=== PATIENT | female | born 1950 | race Caucasian/White ===

== ENCOUNTER 2017-07-03 09:29 | Outpatient (CLI) | payer MEDICARE, OTHER ==
--- NOTE | 2017-07-04 20:08 | Mammography Report ---
DATE OF SERVICE: 07/03/2017 DIGITAL SCREENING MAMMOGRAM: 07/03/2017 CLINICAL INDICATION: A 67-year-old with history of bilateral implants, family history of breast cancer for screening. COMPARISON: Films from [place], [place] dated 05/17/2016, 03/19/2014, 09/03/2012, 07/22/2011, 07/21/2010. TECHNIQUE: Routine CC and MLO projections as well as bilateral implant displaced views were obtained of the breasts. The breasts demonstrate scattered fibroglandular densities bilaterally. Bilateral subglandular silicone implants are stable, with stable capsular calcification. No suspicious masses, clustered microcalcifications, or regions of architectural distortion are identified. IMPRESSION: Benign findings. RECOMMENDATIONS: Routine annual screening unless otherwise clinically indicated. BIRADS category 2 benign findings. STANDARD QUALIFYING STATEMENTS 1. This examination was reviewed with the aid of Computed-Aided Detection (CAD). 2. A negative or benign imaging report should not delay biopsy if clinically suspicious findings are present. Consider surgical consultation if warranted. More than 5% of cancers are not identified by imaging. 3. Dense breasts may obscure an underlying neoplasm. TD: 07/04/2017 21:07
== END 2017-07-03 09:30 | disposition home or self-care (01) ==
LOC: DI 09:29
PROVIDERS: ATTEND Family Medicine
DX: Z12.31 Encounter for screening mammogram for malignant neoplasm of breast (principal); Z80.3 Family history of malignant neoplasm of breast; Z98.82 Breast implant status
CPT/HCPCS: 77067

== ENCOUNTER 2020-02-18 20:30 | Outpatient (CLI) | payer MEDICARE, OTHER | END 2020-02-18 20:31 | disposition home or self-care (01) | LOC: SC 20:30 | PROVIDERS: ATTEND Internal Medicine Pulmonary Disease | DX: G47.33 Obstructive sleep apnea (adult) (pediatric) (principal); E66.3 Overweight; Z68.28 Body mass index [BMI] 28.0-28.9, adult | CPT/HCPCS: 95810 ==

== ENCOUNTER 2020-02-27 11:32 | Outpatient (CLI) | payer MEDICARE, OTHER ==
--- NOTE | 2020-02-27 12:04 | SLEEP CARE CONSULTATION ---
Information from patient questionnaire entered by Kiya Gonzalez. I have reviewed and concur with the information entered by Kiya Gonzalez. This document represents the service I personally performed and the decisions made by , Joyce Casper ARNP. History of Present Illness Service Date and Time: 02/27/2020 1132 Initial [place] Sleepiness Scale score: 11 (in 2020) Current [place] Sleepiness Scale score: 8 Additional HPI information: [address] returns for follow up and results of the recently performed polysomnography. Her study showed that she has severe obstructive sleep apnea with an AHI of 46.5 and a celena oxygen saturation of 65%. Her supine AHI was 70.7 and her non-supine AHI was 44.58. I explained the pathophysiology behind obstructive sleep apnea. We then spent quite a bit of time discussing different treatment options. For mild obstructive sleep apnea, surgery and oral appliance are alternatives to nasal CPAP therapy but in moderate or severe cases, nasal CPAP is the most effective and reliable treatment. I reviewed the impact of weight changes on sleep apnea and strongly recommended losing weight. After some discussion, the patient opted to go with the nasal CPAP therapy. Nasal autoCPAP set at 4-15 cmH20 will be ordered with rationale explained. A manual titration study will be ordered if unable to find optimal pressure with office adjustments. I explained how CPAP machine works with sample devices [employer] Dreamstation and [facility] [id number] and what to expect when using the machine. Using CPAP every night in order to get used to it was emphasized. Patient advised to put CPAP mask on before getting into bed so as not to fall asleep without CPAP. To assist acclimation to CPAP use, it could also be used for a short time during day while reading or watching TV. The patient was instructed to call the CPAP supplier to discuss any mechanical problem that may occur. If the mask given is uncomfortable or is difficult to keep on through the night even with adjustment, contact the CPAP supplier as many will replace with another mask style if notified before 30 days. If snoring or perceives is not getting enough air or too much air from the machine, notify this office. AASM patient education PAP tips reviewed and given to patient. Sleep Study - Results Type of Sleep Study: Polysomnography Prior sleep studies: No Polysomnography/Home Sleep Study results: IMPRESSION: The quality of the study is good. The patient had normal sleep efficiency. Despite moderate sleep fragmentation, the sleep architecture was normal as well. Respiratory monitoring showed severe obstructive sleep apnea-hypopnea (AHI = 46.5) associated with frequent arousals, oxyhemoglobin desaturation and moderate hypoxia (celena oxygen saturation of 65%). Baseline oxygen saturation was normal. The respiratory events occurred independently of sleep stage and body position (supine AHI = 70.7; non-supine = 44.58). Snore was loud in intensity. There was no significant periodic leg movement of sleep. Cardiac rhythm was normal sinus rhythm without significant arrhythmia. No abnormal behavior (parasomnia) observed during the night. Allergies and Home Medications Drug allergies reviewed: Yes (penicillin) Home medication list reviewed: Yes (amytriptaline for sleep) Review of Systems Review of systems same as previous: Yes (no changes) Physical Exam Heart Rate: 80 O2 Saturation: 97 Height: 5 ft 6.5 in Weight: 183 lb Body Mass Index: 29.0 BMI Classification: Overweight Impression and Plan 1. Obstructive Sleep Apnea-Hypopnea Syndrome, severe, with lowest oxygen saturation of 65%. Obviously this is the cause of the patients symptoms of unrefreshed sleep, and excessive daytime sleepiness. Positive pressure therapy could benefit her anxiety and her overall health. As mentioned above, the patient will be started on nasal autoCPAP therapy with pressure set at 4-15 cmH2O. A manual titration study will be completed if unable to find optimal treatment pressure with office adjustments. Compliance guidelines also reviewed. A copy of compliance guidelines will be given for reference at check out. Because the apnea is more severe supine, I instructed to avoid sleeping supine using pillow positioning until able to start CPAP use. * Nasal auto CPAP therapy, pressure at 4-15 cm H2O. * Attempt to lose weight. * Avoid alcohol consumption near bedtime. * Avoid supine sleep until using CPAP. * The patient is again cautioned about driving until sleepiness completely resolves. * Return one month after CPAP obtained. I will assess response to therapy and compliance at that time. Visit Type: In Office Time Spent with Patient (minutes): 25 Provider Statement: I spent 100% of the Face to Face Visit with the patient with greater than 50% spent counseling the patient and coordination of care.
== END 2020-02-27 11:33 | disposition home or self-care (01) ==
LOC: SC 11:32
PROVIDERS: ATTEND Nurse Practitioner Family
DX: G47.33 Obstructive sleep apnea (adult) (pediatric) (principal); E66.3 Overweight; Z68.29 Body mass index [BMI] 29.0-29.9, adult
CPT/HCPCS: 99213; G0463; 99212

== ENCOUNTER 2020-03-17 08:49 | Outpatient (CLI) | payer MEDICARE, OTHER ==
--- NOTE | 2020-03-17 13:26 | Mammography Report ---
BILATERAL DIGITAL SCREENING MAMMOGRAM 3D/2D WITH AUGMENTATION: 03/17/2020 CLINICAL: Family history of breast cancer. Routine screening. Comparison is made to exams dated: 07/03/2017 mammogram - [facility], 05/17/2016 ma mmogram, 03/19/2014 mammogram, 09/03/2012 mammogram, 07/22/2011 mammogram, and [facility] There are scattered fibroglandular elements in both breasts. Bilateral breast implants are stable. No significant masses, calcifications, or other findings are seen in either breast. There has been no significant interval change. IMPRESSION: NEGATIVE There is no mammographic evidence of malignancy. A 1 year screening mammogram is recommended. This exam was interpreted at Station ID: [id number]. NOTE: For mammograms, a report in lay terms will be sent to the patient. Approximately 15% of breast malignancies will not be visualized mammographically. In the management of a palpable breast mass, a negative mammogram must not discourage biopsy of a clinically suspicious lesion. Electronically Signed By: Minesh Lacy M.D. [facility] [place]:03/17/2020 10:12:17 ACR BI-RADS Category 1: Negative 3341F PARENCHYMAL PATTERN: (A) - The breast(s) demonstrate(s) scattered fibroglandular densities. BI-RADS CATEGORY: (1) - 1 RECOMMENDATION: (ANNUAL) - Recommend routine annual screening mammography. [id number] 1 year screening LATERALITY: (B)
== END 2020-03-17 08:50 | disposition home or self-care (01) ==
LOC: DI.N 08:49
DX: Z12.31 Encounter for screening mammogram for malignant neoplasm of breast (principal); Z80.3 Family history of malignant neoplasm of breast; Z98.82 Breast implant status
CPT/HCPCS: 77063; 77067

== ENCOUNTER 2020-04-21 13:03 | Outpatient (CLI) | payer MEDICARE, OTHER ==
--- NOTE | 2020-04-21 13:56 | SLEEP CARE CONSULTATION ---
Information from patient questionnaire entered by Kiya Gonzalez. I have reviewed and concur with the information entered by Kiya Gonzalez. This document represents the service I personally performed and the decisions made by , Joyce Casper ARNP. History of Present Illness Service Date and Time: 04/21/2020 1303 Previous diagnosis: Severe, Obstructive Sleep Apnea-Hypopnea Syndrome AHI: 46.5 (in 2019) Reason for follow up: first compliance Equipment type: CPAP Equipment obtained from: [facility] (supplies ordered, none received yet) Mask style: Full face Backup mask available: Yes (other mask, medium) Last cushion change: 1 month Prior sleep studies: Yes Year and Where: 2019 - [facility] Type of Sleep Study: Polysomnography HPI additional information: [address] was diagnosed to have severe, AHI 46.5, obstructive sleep apnea- hypopnea syndrome and returned today for CPAP therapy first compliance follow- up. CPAP Compliance Data - Data Reviewed with Patient Average duration of nightly device use: 8 Compliance rate %: 100 Current pressure setting (cmH2O): 4-15 Humidity settin Heated hose settin Average residual AHI: 7.0 Central apnea: 0.5 Obstructive apnea: 2.8 Average large leak: 20 sec Subjective Patient concerns: reports: mask leak noise (when she lays on her back, leaks around chin), dry mouth, nose, throat (50% of time), other (seems to leak if I switch to lying on my back.). denies: aerophagia, mask discomfort, air blowing in eyes, condensation in mask/hose, nasal congestion, epistaxis Observed to snore while using device: No Current pressure setting perceived as: too high (sometimes, during the night atou 3-4 AM, about twice a night; ramps and adjust with good results) On therapy, patient: reports: sleeping better, awakening more refreshed, being more awake and alert during the day, more rested overall. denies: drowsiness while driving Initial [place] Sleepiness Scale score: 11 (in 2019) Current [place] Sleepiness Scale score: 5 Allergies and Home Medications Drug allergies reviewed: Yes (penicillin) Home medication list reviewed: Yes (no changes) Review of Systems Review of systems same as previous: Yes (no changes) Physical Exam Heart Rate: 70 O2 Saturation: 97 Height: 5 ft 6.5 in Weight: 191 lb Body Mass Index: 30.3 BMI Classification: Obese Impression and Plan 1. Obstructive Sleep Apnea-Hypopnea Syndrome, severe, with excellent treatment compliance and fair apnea control with elevated AHI at 7.0. On CPAP therapy, the patient has better sleep quality and is more rested overall. She has had some mask leak noises when she turns onto her back. I encouraged her to put the mask on when she is laying on her back as this may help to reduce leak noises when turning to sleep on back. She has also had some oral dryness. She thinks some of it could be caused by the amitriptyline that she takes daily. Oral dryness can be reduced by adjusting humidity setting higher or heated hose lower or by adjusting both settings. Printed instructions given on how to change humidity and heated hose settings with rationale explaining why to change. Oral dryness can also be reduced by reducing mask leaks. Patient advised that chronic oral dryness can affect dental health and advised to follow up with dentist. In addition, there are oral dryness products that can be used to reduce dryness such as Biotene products, Dry mouth rinse and Xylomelts. Patient to discuss best option with dentist. Patient's apnea severity and rationale for treatment to reduce apnea, improve sleep quality and reduce cardiovascular and cerebrovascular events was reviewed. I also reviewed the benefit of consistent device use of CPAP for anxiety. * Change autoCPAP pressure to 9-10 cmH2O * Notify me if snoring with mask or feeling that the pressure is too much or too little * Attempt to lose weight * Call this office if any problems using CPAP * Return for follow up in 1-2 months, or sooner if concerns arise Counseling Topics: Spare mask, Weight loss health impact Visit Type: In Office Time Spent with Patient (minutes): 19 Provider Statement: I spent 100% of the Face to Face Visit with the patient with greater than 50% spent counseling the patient and coordination of care.
== END 2020-04-21 13:04 | disposition home or self-care (01) ==
LOC: SC 13:03
PROVIDERS: ATTEND Nurse Practitioner Family
DX: G47.33 Obstructive sleep apnea (adult) (pediatric) (principal); E66.9 Obesity, unspecified; Z68.30 Body mass index [BMI] 30.0-30.9, adult
CPT/HCPCS: 99212; G0463

== ENCOUNTER 2020-06-02 13:02 | Outpatient (CLI) | payer MEDICARE, OTHER ==
--- NOTE | 2020-06-02 13:49 | SLEEP CARE CONSULTATION ---
Information from patient questionnaire entered by Kiya Gonzalez. I have reviewed and concur with the information entered by Kiya Gonzalez. This document represents the service I personally performed and the decisions made by , Joyce Casper ARNP. History of Present Illness Service Date and Time: 06/02/2020 1302 Previous diagnosis: Severe, Obstructive Sleep Apnea-Hypopnea Syndrome AHI: 46.5 (in 2019) Reason for follow up: other (6 week with pressure change) Equipment type: CPAP Equipment obtained from: [facility] (getting supplies as needed) Mask style: Full face Backup mask available: Yes (other mask) Last cushion change: 2 weeks Prior sleep studies: Yes Year and Where: 2019 - [facility] Type of Sleep Study: Polysomnography HPI additional information: [address] was diagnosed to have severe, AHI 46.5, obstructive sleep apnea- hypopnea syndrome and returned today for CPAP therapy 6 week pressure change follow-up. CPAP Compliance Data - Data Reviewed with Patient Average duration of nightly device use: 7 hr 21 min Compliance rate %: 100 Current pressure setting (cmH2O): 9-10 Humidity settin Heated hose settin Average residual AHI: 2.1 Average large leak: 0 Subjective Patient concerns: reports: air blowing in eyes (using gel moisturizer with good results), dry mouth, nose, throat (sometimes, sometimes has mouth open). denies: aerophagia, mask discomfort, mask leak noise, condensation in mask/hose, nasal congestion, epistaxis, other Observed to snore while using device: No Current pressure setting perceived as: comfortable On therapy, patient: reports: sleeping better, awakening more refreshed, being more awake and alert during the day, more rested overall. denies: drowsiness while driving Initial [place] Sleepiness Scale score: 11 (in 2020) Current [place] Sleepiness Scale score: 3 Allergies and Home Medications Drug allergies reviewed: Yes (penicillins) Home medication list reviewed: Yes (no changes) Review of Systems Review of systems same as previous: Yes (no changes) Physical Exam Heart Rate: 80 O2 Saturation: 96 Height: 5 ft 6.5 in Weight: 194 lb Body Mass Index: 30.8 BMI Classification: Obese Impression and Plan 1. Obstructive Sleep Apnea-Hypopnea Syndrome, severe, with excellent treatment compliance and good apnea control. On CPAP therapy, the patient has better sleep quality and is more rested overall. Patient plans on trying to lose weight. She would also like to have a little more range of lower pressures because sometimes the pressure feels too much when putting back on. Currently patients BMI is 30.8. Obesity increases the risk of apnea, CPAP pressure requirements and overall health risks especially cardiovascular and diabetes. The patient's CPAP pressure range should accommodate some weight loss. Symptoms to report for additional pressure adjustment discussed. Patient's apnea severity and rationale for treatment to reduce apnea, improve sleep quality and reduce cardiovascular and cerebrovascular events was reviewed. I also reviewed the benefit of consistent device use of CPAP for anxiety. * Change autoCPAP pressure to 8-10 cmH2O * Notify me if snoring with mask or feeling that the pressure is too much or too little * Attempt to lose weight * Call this office if any problems using CPAP * Return for follow up in 3 months, or sooner if concerns arise Counseling Topics: Spare mask, Weight loss health impact Visit Type: In Office Time Spent with Patient (minutes): 22 Provider Statement: I spent 100% of the Face to Face Visit with the patient with greater than 50% spent counseling the patient and coordination of care.
== END 2020-06-02 13:03 | disposition home or self-care (01) ==
LOC: SC 13:02
PROVIDERS: ATTEND Nurse Practitioner Family
DX: G47.33 Obstructive sleep apnea (adult) (pediatric) (principal); E66.9 Obesity, unspecified; Z68.30 Body mass index [BMI] 30.0-30.9, adult
CPT/HCPCS: 99213; G0463; 99212

== ENCOUNTER 2020-09-01 13:00 | Outpatient (CLI) | payer MEDICARE, OTHER ==
--- NOTE | 2020-09-01 13:33 | SLEEP CARE CONSULTATION ---
Information from patient questionnaire entered by Darion Greco. I have reviewed and concur with the information entered by Darion Greco. This document represents the service I personally performed and the decisions made by me, Joyce Casper ARNP. History of Present Illness Service Date and Time: 09/01/2020 1300 Previous diagnosis: Severe, Obstructive Sleep Apnea-Hypopnea Syndrome AHI: 46.5 Reason for follow up: three month (followup - pressure change) Equipment type: CPAP Equipment obtained from: [facility] (getting supplies as needed) Mask style: Full face Backup mask available: Yes (other mask) Prior sleep studies: Yes Year and Where: 2019 - [facility] Type of Sleep Study: Polysomnography HPI additional information: [address] was diagnosed to have severe, AHI 46.5, obstructive sleep apnea- hypopnea syndrome and returned today for CPAP therapy three month pressure change follow-up. CPAP Compliance Data - Data Reviewed with Patient Average duration of nightly device use: 7 h 20 min Compliance rate %: 97.8 Current pressure setting (cmH2O): 8-10 Humidity settin Heated hose settin Average residual AHI: 3.2 Average large leak: 0 sec Subjective Patient concerns: reports: mask discomfort, mask leak noise. denies: aerophagia, air blowing in eyes, condensation in mask/hose, nasal congestion, dry mouth, nose, throat, epistaxis, other Observed to snore while using device: No (not that she knows of) Current pressure setting perceived as: too high (unsure, changing the mask helps it to feel better) On therapy, patient: reports: sleeping better, awakening more refreshed, being more awake and alert during the day, more rested overall. denies: drowsiness while driving Initial [place] Sleepiness Scale score: 11 (in 2020) Current [place] Sleepiness Scale score: 2 Allergies and Home Medications Drug allergies reviewed: Yes (penicillin) Home medication list reviewed: Yes (no changes) Review of Systems Review of systems same as previous: Yes (no changes) Physical Exam Heart Rate: 72 O2 Saturation: 97 Height: 5 ft 6.5 in Weight: 190 lb Body Mass Index: 30.2 BMI Classification: Obese Impression and Plan 1. Obstructive Sleep Apnea-Hypopnea Syndrome, severe, with good treatment compliance and good apnea control. On CPAP therapy, the patient has better sleep quality and is more rested overall. She is having a lot more energy during the day. She is still having issues with mask leak noises and mask discomfort with using the full face mask. She has made an appointment with the DME to get fitted with a nasal mask to see if this would seal better and work better for her. She is very happy with CPAP therapy and response to therapy. She does not feel the pressure is too much and is working well at the current settings. I will leave at current setting for good apnea control. She is to follow up in 3 months to check on her progress and how the new mask is working. Patient's apnea severity and rationale for treatment to reduce apnea, improve sleep quality and reduce cardiovascular and cerebrovascular events was reviewed. I also reviewed the benefit of consistent device use of CPAP for anxiety. * Continue auto CPAP pressure at 8-10 cmH2O * Patient to follow up with DME for new mask fitting * Notify me if snoring with mask or feeling that the pressure is too much or too little * Attempt to lose weight * Call this office if any problems using CPAP * Return for follow up in 3 months, or sooner if concerns arise Counseling Topics: Spare mask, Weight loss health impact Visit Type: In Office Time Spent with Patient (minutes): 21 Provider Statement: I spent 100% of the Face to Face Visit with the patient with greater than 50% spent counseling the patient and coordination of care.
== END 2020-09-01 13:01 | disposition home or self-care (01) ==
LOC: SC 13:00
PROVIDERS: ATTEND Nurse Practitioner Family
DX: G47.33 Obstructive sleep apnea (adult) (pediatric) (principal); E66.9 Obesity, unspecified; Z68.30 Body mass index [BMI] 30.0-30.9, adult
CPT/HCPCS: 99213; G0463; 99212

== ENCOUNTER 2020-12-01 12:42 | Outpatient (CLI) | payer MEDICARE, OTHER ==
--- NOTE | 2020-12-01 13:14 | SLEEP CARE CONSULTATION ---
Information from patient questionnaire entered by Kiya Gonzalez. I have reviewed and concur with the information entered by Kiya Gonzalez. This document represents the service I personally performed and the decisions made by , Joyce Casper ARNP. History of Present Illness Service Date and Time: 12/01/2020 1242 Previous diagnosis: Severe, Obstructive Sleep Apnea-Hypopnea Syndrome AHI: 46.5 (in 2019) Reason for follow up: three month Equipment type: CPAP Equipment obtained from: [facility] (getting supplies as needed) Mask style: Nasal Backup mask available: Yes (old mask) Last cushion change: today Prior sleep studies: Yes Year and Where: 2019 - [facility] Type of Sleep Study: Polysomnography HPI additional information: [address] was diagnosed to have severe, AHI 46.5, obstructive sleep apnea- hypopnea syndrome and returned today for CPAP therapy three month follow-up. CPAP Compliance Data - Data Reviewed with Patient Average duration of nightly device use: 7 hr 28 min Compliance rate %: 100 (90 days) Current pressure setting (cmH2O): 8-10 Humidity settin Heated hose settin Average residual AHI: 2.8 Average large leak: 4 sec Subjective Patient concerns: denies: aerophagia, mask discomfort, air blowing in eyes, mask leak noise, condensation in mask/hose, nasal congestion, dry mouth, nose, throat, epistaxis, other Observed to snore while using device: No Current pressure setting perceived as: comfortable On therapy, patient: reports: sleeping better, awakening more refreshed, being more awake and alert during the day, more rested overall. denies: drowsiness while driving Initial [place] Sleepiness Scale score: 11 (in 2019) Current [place] Sleepiness Scale score: 4 Allergies and Home Medications Home medication list reviewed: Yes (no changes) Review of Systems Review of systems same as previous: Yes (no changes) Physical Exam Heart Rate: 74 O2 Saturation: 97 Height: 5 ft 6.5 in Weight: 187 lb Body Mass Index: 29.7 BMI Classification: Overweight Impression and Plan 1. Obstructive Sleep Apnea-Hypopnea Syndrome, severe, with excellent treatment compliance and good apnea control. On CPAP therapy, the patient has better sleep quality and is more rested overall. Patient is very satisfied with her CPAP therapy. She changed to a nasal cushion mask and states it fits better and is more comfortable than the full face mask she was using at first. She is going to continue using the nasal cushion mask. I asked her about weight loss and she states she does have an appointment with a new occupational health coordinator that she will be working with to reduce her weight. She was advised to concentrate on getting better nutrition and less on calorie intake. She voiced understanding and agreement with this plan of care. Patient's apnea severity and rationale for treatment to reduce apnea, improve sleep quality and reduce cardiovascular and cerebrovascular events was reviewed. I also reviewed the benefit of consistent device use of CPAP for anxiety. * Continue auto CPAP pressure at 8-10 cmH2O * Notify me if snoring with mask or feeling that the pressure is too much or too little * Attempt to lose weight * Call this office if any problems using CPAP * Return for follow up in 6 months, or sooner if concerns arise Counseling Topics: Spare mask, Weight loss health impact Visit Type: In Office Time Spent with Patient (minutes): 14 Provider Statement: I spent 100% of the Face to Face Visit with the patient with greater than 50% spent counseling the patient and coordination of care.
== END 2020-12-01 12:43 | disposition home or self-care (01) ==
LOC: SC 12:42
PROVIDERS: ATTEND Nurse Practitioner Family
DX: G47.33 Obstructive sleep apnea (adult) (pediatric) (principal); E66.3 Overweight; Z68.29 Body mass index [BMI] 29.0-29.9, adult
CPT/HCPCS: 99212; G0463

== ENCOUNTER 2021-06-09 09:56 | Outpatient (CLI) | payer MEDICARE, OTHER ==
[2021-06-09 11:01] VITALS: BP 134/87
--- NOTE | 2021-06-09 11:01 | SLEEP CARE CONSULTATION ---
Information from patient questionnaire entered by Pamela Mota MA. I have reviewed and concur with the information entered by Pamela Mota MA. This document represents the service I personally performed and the decisions made by , Joyce Casper ARNP. History of Present Illness Service Date and Time: 06/09/2021 0956 Previous diagnosis: Severe, Obstructive Sleep Apnea-Hypopnea Syndrome AHI: 46.5 (in 2019) Reason for follow up: six month (6 MONTH F/U) Equipment type: CPAP Equipment obtained from: Other ([facility]; getting) Mask style: Nasal Backup mask available: Yes (old mask) Prior sleep studies: Yes Year and Where: 2019 - [facility] Type of Sleep Study: Polysomnography HPI additional information: [address] was diagnosed to have severe, AHI 46.5, obstructive sleep apnea- hypopnea syndrome and returned today for CPAP therapy six month follow-up. Sleep Study - Results Type of Sleep Study: Polysomnography Prior sleep studies: Yes Year and Where: 2019 - [facility] CPAP Compliance Data - Data Reviewed with Patient Average duration of nightly device use: Compliance rate %: 95 Current pressure setting (cmH2O): 8-10 Humidity settin Heated hose setting: disabled Average residual AHI: 2.5 Average large leak: 12 seconds Subjective Missed days of use due to: reports: other (recall) Patient concerns: denies: aerophagia, mask discomfort, air blowing in eyes, mask leak noise, condensation in mask/hose, nasal congestion, dry mouth, nose, throat, epistaxis, other Observed to snore while using device: No Current pressure setting perceived as: comfortable On therapy, patient: reports: sleeping better, awakening more refreshed, being more awake and alert during the day, more rested overall. denies: drowsiness while driving Initial [place] Sleepiness Scale score: 11 (in 2019) Current [place] Sleepiness Scale score: 4 (2020) Allergies and Home Medications Known drug allergies: Yes (PN) Drug allergies reviewed: Yes Home medication list reviewed: Yes (no changes) Review of Systems Review of systems same as previous: Yes (no changes) Physical Exam Vital signs obtained and entered by: MARVIN IVEY Blood Pressure: 134/87 (left) Cuff size: wrist Heart Rate: 87 O2 Saturation: 98 (cloth mask) Height: 5 ft 6.5 in Weight: 186 lb (with clothes) Body Mass Index: 29.5 BMI Classification: Overweight Impression and Plan 1. Obstructive Sleep Apnea-Hypopnea Syndrome, severe, with good treatment compliance and good apnea control. On CPAP therapy, the patient has better sleep quality and is more rested overall. Patient has a Dreamstation. Patient has already registered their device for the recall. Patient denies any black particles seen in machine or hoses, any unusual odors coming from device. Patient has not experienced any physical symptoms such as upper airway irritation, headache, skin or eye irritation, asthma, nausea/vomiting, difficult y breathing or chest pain. If patient is not able to sleep due to waking up choking, gasping for air or other respiratory distress that they may decide to continue using it until it is either replaced or repaired. Patient is nervous about using the recalled device. She was instructed to elevate her head to help reduce apneas. She was advised that she may try to obtain a portable CPAP but that insurance does not usually pay for them. Patient decided to look into obtaining a portable CPAP device that she could use until her recalled device is replaced or fixed. I will make a prescription for her. Patient voiced understanding and agreement with plan. Patient's apnea severity and rationale for treatment to reduce apnea, improve sleep quality and reduce cardiovascular and cerebrovascular events was reviewed. I also reviewed the benefit of consistent device use of CPAP for anxiety. * Continue auto CPAP pressure at 8-10 cmH2O * Prescription for portable APAP * Notify me if snoring with mask or feeling that the pressure is too much or too little * Attempt to lose weight * Call this office if any problems using CPAP * Return for follow up in 1 year, or sooner if concerns arise Counseling Topics: Spare mask, Weight loss health impact Visit Type: In Office Time Spent with Patient (minutes): 20 Provider Statement: I spent 100% of the Face to Face Visit with the patient with greater than 50% spent counseling the patient and coordination of care.
== END 2021-06-09 09:57 | disposition home or self-care (01) ==
LOC: SC 09:56
PROVIDERS: ATTEND Nurse Practitioner Family
DX: G47.33 Obstructive sleep apnea (adult) (pediatric) (principal)
CPT/HCPCS: 99213; G0463; 99212

== ENCOUNTER 2022-03-01 13:05 | Outpatient (CLI) | payer MEDICARE, OTHER ==
[2022-03-01 13:45] VITALS: BP 133/75
--- NOTE | 2022-03-01 13:45 | SLEEP CARE CONSULTATION ---
Information from patient questionnaire entered by Ana Greco MA. I have reviewed and concur with the information entered by Ana Greco MA. This document represents the service I personally performed and the decisions made by , Joyce Casper ARNP. History of Present Illness Service Date and Time: 03/01/2022 1305 Previous diagnosis: Severe, Obstructive Sleep Apnea-Hypopnea Syndrome AHI: 46.5 (in 2019) Reason for follow up: other (9 MO FOLLOW UP LAST SEEN 06/08) Equipment type: CPAP Equipment obtained from: Other ([facility]; getting supplies as needed) Mask style: Nasal Backup mask available: Yes (old mask) Last cushion change: 2 weeks Prior sleep studies: Yes Year and Where: 2019 - [facility] Type of Sleep Study: Polysomnography HPI additional information: [address] was diagnosed to have severe, AHI 46.5, obstructive sleep apnea- hypopnea syndrome and returned today for CPAP therapy nine months follow-up. Sleep Study - Results Type of Sleep Study: Polysomnography Prior sleep studies: Yes Year and Where: 2019 - [facility] CPAP Compliance Data - Data Reviewed with Patient Average duration of nightly device use: 7 hrs 8 mins Compliance rate %: 92.8 (12/09/2020-06/06/2021) Current pressure setting (cmH2O): 8-10 Average residual AHI: 2.5 Compliance data discussion: Patient has a Dreamstation that is on the recall. She bought an Flyzik machine. She has been using this every night with a score of 85-100% per patient report. She states her AHI average is about 1.8-2.0. Subjective Missed days of use due to: reports: other (Using Air Mini due to recall on her Jose Welzoo) Patient concerns: denies: aerophagia, mask discomfort, air blowing in eyes, mask leak noise, condensation in mask/hose, nasal congestion, dry mouth, nose, throat, epistaxis, other Observed to snore while using device: No Current pressure setting perceived as: comfortable On therapy, patient: reports: sleeping better, awakening more refreshed, being more awake and alert during the day, more rested overall. denies: drowsiness while driving Initial [place] Sleepiness Scale score: 11 (in 2019) Current [place] Sleepiness Scale score: 1 (03/01/22) Allergies and Home Medications Drug allergies reviewed: Yes (PCN G) Home medication list reviewed: Yes (no changes) Review of Systems Review of systems same as previous: Yes (no changes) Physical Exam Vital signs obtained and entered by: ADORE Blood Pressure: 133/75 (LEFT) Cuff size: wrist Heart Rate: 78 O2 Saturation: 98 Height: 5 ft 6.5 in Weight: 185 lb Weight change since last visit: 1 lb loss Body Mass Index: 29.4 BMI Classification: Overweight Impression and Plan 1. Obstructive Sleep Apnea-Hypopnea Syndrome, severe, with unknown treatment compliance and unknown apnea control. On CPAP therapy, the patient has better sleep quality and is more rested overall. Patient has a Jose DreamStation that is on the recall. She got a ResMed Airmini portable machine that she has been using since May of 2021. She did not bring it in with her today and did not download information to her phone saturnino for us to see this information. I requested that she bring it in so that we can get compliance information and she agreed. I entered information from her DreamStation CPAP which reflects the use she still does with her ResMed Airmini. Patient denies problems with oral dryness, nasal congestion, epistaxis, skin irritation or aerophagia. I will write a prescription to update her supplies. Patient's apnea severity and rationale for treatment to reduce apnea, improve sleep quality and reduce cardiovascular and cerebrovascular events was reviewed. I also reviewed the benefit of consistent device use of CPAP for anxiety. * Continue auto CPAP pressure at 8-10 cmH2O * Patient to bring in her Resmed Airmini to get download information * Update supplies * Notify me if snoring with mask or feeling that the pressure is too much or too little * Attempt to lose weight * Call this office if any problems using CPAP * Return for follow up in 1 year, or sooner if concerns arise Counseling Topics: Spare mask, Weight loss health impact Visit Type: In Office Time Spent with Patient (minutes): 21 Provider Statement: I spent 100% of the Face to Face Visit with the patient with greater than 50% spent counseling the patient and coordination of care.
== END 2022-03-01 13:06 | disposition home or self-care (01) ==
LOC: SC 13:05
PROVIDERS: ATTEND Nurse Practitioner Family
DX: G47.33 Obstructive sleep apnea (adult) (pediatric) (principal); E66.3 Overweight; Z68.29 Body mass index [BMI] 29.0-29.9, adult
CPT/HCPCS: 99213; G0463; 99212

== ENCOUNTER 2023-02-28 12:54 | Outpatient (CLI) | payer MEDICARE, OTHER ==
--- NOTE | 2023-02-28 13:35 | Sleep Patient Instructions ---
Sleep Center Visit Summary - Patient Visit Information Reason for Visit: Annual visit for PAP therapy - Patient Instructions Additional Instructions: You will continue with CPAP therapy with pressure set at 8-10 cmH2O. A supply prescription will be updated with your DME. We encourage you to continue to try to lose weight. Please follow up with the sleep care office in 1 year. - Clinic Information Contact: [facility] [address] [place] [address] [email or web address] T: [phone]
--- NOTE | 2023-02-28 13:40 | SLEEP CARE CONSULTATION ---
Information from patient questionnaire entered by Eliza Salmon. I have reviewed and concur with the information entered by Eliza Salmon. This document represents the service I personally performed and the decisions made by me, Joyce Casper ARNP. History of Present Illness Service Date and Time: 02/28/2023 1254 Previous diagnosis: Severe, Obstructive Sleep Apnea-Hypopnea Syndrome AHI: 46.5 (in 2019) Reason for follow up: annual (LAST SEEN 02/2022) Equipment type: CPAP (Jose Dreamstation, recertified; s/u ) Equipment obtained from: Other ([facility]; getting supplies as needed) Mask style: Nasal Backup mask available: Yes (old mask) Last cushion change: 1 week Prior sleep studies: Yes Year and Where: 2019 - [facility] Type of Sleep Study: Polysomnography HPI additional information: [address] was diagnosed to have severe, AHI 46.5, obstructive sleep apnea- hypopnea syndrome and returned today for CPAP therapy annual follow-up. Sleep Study - Results Type of Sleep Study: Polysomnography Prior sleep studies: Yes Year and Where: 2019 - [facility] CPAP Compliance Data - Data Reviewed with Patient Average duration of nightly device use: 8 HRS 15 MINS 34 SECS Compliance rate %: 100 (12/24/22-02/21/23; 60/60 days used) Current pressure setting (cmH2O): 8-10 Average residual AHI: 3.8 Central apnea: 0.3 Obstructive apnea: 1.3 Hypopnea: 2.2 Average large leak: 13 mins 5 secs Subjective Patient concerns: denies: aerophagia, mask discomfort, air blowing in eyes, mask leak noise, condensation in mask/hose, nasal congestion, dry mouth, nose, throat, epistaxis Observed to snore while using device: No Current pressure setting perceived as: comfortable On therapy, patient: reports: sleeping better, awakening more refreshed, being more awake and alert during the day, more rested overall. denies: drowsiness while driving Initial [place] Sleepiness Scale score: 11 (in 2019) Current [place] Sleepiness Scale score: 4 (02/28/23) Allergies and Home Medications Known drug allergies: Yes (as listed) Drug allergies reviewed: Yes Home medication list reviewed: Yes (no changes) Allergy and home medication list: Allergies penicillin G Allergy (Verified 02/27/23 09:39) Review of Systems Review of systems same as previous: No (UPCOMING R KNEE REPLACEMENT MAR 09 2023) Physical Exam Vital signs obtained and entered by: ELIZA Naqvi MA Blood Pressure: 160/94 (02/28/23) Cuff size: regular Heart Rate: 83 O2 Saturation: 96 Height: 5 ft 6.5 in Weight: 196 lb 3.2 oz Weight change since last visit: 11 lb gain Body Mass Index: 31.1 BMI Classification: Obese Impression and Plan 1. Obstructive Sleep Apnea-Hypopnea Syndrome, severe, with good treatment compliance and good apnea control. On CPAP therapy, the patient has better sleep quality and is more rested overall. Patient has significant improvement of their sleep apnea and is satisfied with current CPAP therapy. Patient denies problems with oral dryness, nasal congestion, epistaxis, skin irritation or aerophagia. She is going to have a knee replacement on her right knee in a couple weeks. She is looking forward to less pain in her knee. Patient's apnea severity and rationale for treatment to reduce apnea, improve sleep quality and reduce cardiovascular and cerebrovascular events was reviewed. I also reviewed the benefit of consistent device use of CPAP for anxiety. 2. Obesity, unspecified. Currently patients BMI is 31.1. Obesity increases the risk of apnea, CPAP pressure requirements and overall health risks especially cardiovascular and diabetes. Thus patient is advised to lose weight. * Continue auto CPAP pressure at 8-10 cmH2O * Update supplies * Notify me if snoring with mask or feeling that the pressure is too much or too little * Attempt to lose weight * Call this office if any problems using CPAP * Return for follow up in 1 year, or sooner if concerns arise Counseling Topics: Spare mask, Weight loss health impact Visit Type: In Office Time Spent with Patient (minutes): 20 Provider Statement: I spent 100% of the Face to Face Visit with the patient with greater than 50% spent counseling the patient and coordination of care.
[2023-02-28 13:42] VITALS: BP 160/94; O2SAT 96
== END 2023-02-28 12:55 | disposition home or self-care (01) ==
LOC: SC 12:54
PROVIDERS: ATTEND Nurse Practitioner Family
DX: G47.33 Obstructive sleep apnea (adult) (pediatric) (principal); E66.9 Obesity, unspecified; Z68.31 Body mass index [BMI] 31.0-31.9, adult
CPT/HCPCS: 99213; G0463; 99212

== ENCOUNTER 2024-03-05 10:44 | Outpatient (CLI) | payer MEDICARE, OTHER ==
--- NOTE | 2024-03-05 11:20 | Sleep Patient Instructions ---
Sleep Center Visit Summary - Patient Visit Information Reason for Visit: Annual follow-up - Patient Instructions Additional Instructions: You will continue with CPAP therapy with pressure set at 8-10 cmH2O. A supply prescription will be updated with your DME supplier. We encourage you to continue to try to lose weight. Please follow up with the sleep care office in 1 year. - Clinic Information Contact: [facility] [address] [place] [address] [email or web address] T: [phone]
--- NOTE | 2024-03-05 11:23 | SLEEP CARE CONSULTATION ---
Information from patient questionnaire entered by Eliza Salmon. I have reviewed and concur with the information entered by Eliza Salmon. This document represents the service I personally performed and the decisions made by me, Joyce Casper ARNP. History of Present Illness Service Date and Time: 03/05/2024 1044 Previous diagnosis: Severe, Obstructive Sleep Apnea-Hypopnea Syndrome AHI: 46.5 (in 2019) Reason for follow up: annual (LAST SEEN 02/2023) Equipment type: CPAP (Jose Dreamstation, recertified; s/u ) Equipment obtained from: Other ([facility]; getting supplies as needed) Mask style: Nasal Mask brand: Respironics (Dreamwear, small cushion) Backup mask available: Yes Last cushion change: 2 weeks + [facility]: [email or web address] Type [facility]: [facility] HPI additional information: [address] was diagnosed to have severe, AHI 46.5, obstructive sleep apnea- hypopnea syndrome and returned today for CPAP therapy annual follow-up. Sleep Study - Results Type of Sleep Study: Polysomnography Prior sleep [facility]: Yes [email or web address] Compliance Data - Data Reviewed with Patient Average duration of nightly device use: 7 HRS 52 MINS 50 SECS Compliance rate %: 100 (09/02/23-02/28/24; 180/180 days used) Current pressure setting (cmH2O): 8-10 Average residual AHI: 2.2 Central apnea: 0.2 Obstructive apnea: 0.9 Hypopnea: 1.1 Average large leak: 13 secs Subjective Patient concerns: denies: aerophagia, mask discomfort, air blowing in eyes, mask leak noise, condensation in mask/hose, nasal congestion, dry mouth, nose, throat, epistaxis Observed to snore while using device: No Current pressure setting perceived as: comfortable On therapy, patient: reports: sleeping better, awakening more refreshed, being more awake and alert during the day, more rested overall. denies: drowsiness while driving Initial [place] Sleepiness Scale score: 11 (in 2019) Current [place] Sleepiness Scale score: 4 (03/05/24) Allergies and Home Medications Known drug allergies: Yes (as listed) Drug allergies reviewed: Yes Home medication list reviewed: Yes (no changes) Allergy and home medication list: Allergies penicillin G Allergy (Verified 02/28/23 13:03) Review of Systems Review of systems same as previous: No (KNEE REPLACEMENT 02/2023) Physical Exam Vital signs obtained and entered by: ELIZA Naqvi MA Blood Pressure: 158/89 (RIGHT ARM) Cuff size: regular Heart Rate: 83 O2 Saturation: 97 Height: 5 ft 6.5 in Weight: 209 lb Body Mass Index: 33.2 BMI Classification: Obese Impression and Plan 1. Obstructive Sleep Apnea-Hypopnea Syndrome, severe, with good treatment compliance and good apnea control. On CPAP therapy, the patient has better sleep quality and is more rested overall. She has significant improvement of her sleep apnea and is satisfied with current CPAP therapy. She has no concerns or complaints. She is going on a trip and needs a copy of her supply prescription to keep with her in case they need to check this when she is flying. Patient's apnea severity and rationale for treatment to reduce apnea, improve sleep quality and reduce cardiovascular and cerebrovascular events was reviewed. I also reviewed the benefit of consistent device use of CPAP for anxiety. 2. Obesity, unspecified. Currently patients BMI is 33.2. Obesity increases the risk of apnea, CPAP pressure requirements and overall health risks especially cardiovascular and diabetes. Thus patient is advised to lose weight. * Continue auto CPAP pressure at 8-10 cmH2O * Update supply prescription * Notify me if snoring with mask or feeling that the pressure is too much or too little * Attempt to lose weight * Call this office if any problems using CPAP * Return for follow up in 12 months, or sooner if concerns arise Counseling Topics: Spare mask, Weight loss health impact Prescriptions: Device supplies Follow up with Sleep Care in: 1 year Visit Type: In Office Time Spent with Patient (minutes): 20 Provider Statement: I spent 100% of the Face to Face Visit with the patient with greater than 50% spent counseling the patient and coordination of care.
[2024-03-05 11:30] VITALS: BP 158/89; O2SAT 97
== END 2024-03-05 10:45 | disposition home or self-care (01) ==
LOC: SC 10:44
PROVIDERS: ATTEND Nurse Practitioner Family
DX: G47.33 Obstructive sleep apnea (adult) (pediatric) (principal); E66.9 Obesity, unspecified; Z68.33 Body mass index [BMI] 33.0-33.9, adult
CPT/HCPCS: 99213; G0463; 99212